=== PATIENT | female | born 1955 | race Caucasian/White ===

== ENCOUNTER 2024-01-15 14:08 | Inpatient (IN) | payer OTHER, MEDICAID ==
[~2024-01-15] VITALS: Ht 157.5 cm; Wt 63.5 kg
[~2024-01-15 14:08] MED LIST: BENZ1TAB84 PO; BUPR150T3 PO; DOCU-385 PO; FLUP5TAB31 PO
[2024-01-15 15:21] LABS: GLUCOMETER DEV NAME(LOC) POC.BV; POC SARS-COV2 AG, FIA NEGATIVE (NEGATIVE)
[2024-01-15] MEDS ORDERED: HALOPERIDOL 5 MG TABLET PO PRN (16:00)
[2024-01-15] MEDS ORDERED: LORazepam 2 MG TABLET PO PRN (16:00)
[2024-01-15 18:56] VITALS: BP 121/88; PULSE 86; RESP 13; TEMP 98.5; O2SAT 97
[2024-01-15] MEDS ORDERED: PNEUMOCOCCAL VACCINE POLYVALENT 0.5 ML SYRINGE [PPSV23] IM. ONE (19:00)
[2024-01-15 20:59] VITALS: BP 108/70; PULSE 76; RESP 18; TEMP 98.3; O2SAT 97
[2024-01-16] MEDS ORDERED: MAGNESIUM HYDROXIDE SUSPENSION 30 ML UDCUP PO PRN (05:45)
[2024-01-16] MEDS ORDERED: DOCUSATE SODIUM 100 MG CAPSULE PO PRN (05:45)
[2024-01-16] MEDS ORDERED: LOPERAMIDE HCL 2 MG CAPSULE PO PRN (05:45)
[2024-01-16] MEDS ORDERED: ALBUTEROL SULFATE HFA 90 MCG/PUFF 8 GM INHALER IH PRN (05:45)
[2024-01-16] MEDS ORDERED: BACITRACIN 28 GM OINTMENT TP PRN (05:45)
[2024-01-16] MEDS ORDERED: CloNIDine HCL 0.1 MG TABLET PO PRN (05:45)
[2024-01-16] MEDS ORDERED: MAG HYDROX/ALUMINUM HYD/SIMETH ES 30 ML SUSPENSION UDCUP PO PRN (05:45)
[2024-01-16] MEDS ORDERED: ONDANSETRON HCL 4 MG TABLET PO PRN (05:45)
[2024-01-16] MEDS ORDERED: IBUPROFEN 600 MG TABLET PO PRN (05:45)
[2024-01-16] MEDS ORDERED: BENZOCAINE/MENTHOL LOZENGE PO PRN (05:45)
[2024-01-16] MEDS ORDERED: OMEPRAZOLE 20 MG CAPSULE PO PRN (05:45)
[2024-01-16] MEDS ORDERED: PETROLATUM,WHITE 28 GM JELLY TP PRN (05:45)
[2024-01-16 08:03] LABS: BASOPHILS % (AUTO) 1.4 % (0.0-2.0); HEMATOCRIT 43.2 % (36-46); HEMOGLOBIN 14.4 g/dL (12.0-16.0); LYMPHOCYTES # (AUTO) 2.6 K/uL (1.0-4.8); LYMPHOCYTES % (AUTO) 39.1 % (22.0-44.0); MEAN CORPUSCULAR HEMOGLOBIN 30.5 pg (26.0-34.0); MEAN CORPUSCULAR HGB CONC 33.3 G/dL (31.0-37.0); MEAN CORPUSCULAR VOLUME 91 fL (80-100); MONOCYTES # (AUTO) 0.7 K/uL (0.1-1.0); MONOCYTES % (AUTO) 11.1 % (2.0-9.0); NEUTROPHILS % (AUTO) 45.4 % (40.0-70.0); PLATELET COUNT (AUTO) 374 K/uL (150-450); RED BLOOD CELL COUNT(AUTO) 4.72 MIL/uL (4.00-5.20); RED CELL DISTRIBUTION WIDTH 14.5 % (11.5-14.5); WHITE BLOOD COUNT (AUTO) 6.7 K/uL (4.5-11.0)
[2024-01-16 08:25] LABS: ALBUMIN 3.9 g/dL (3.4-5.0); BILIRUBIN,TOTAL 0.4 mg/dL (0.1-1.0); CALCIUM, TOTAL 9.6 mg/dL (8.8-10.5); CHOL/HDL RATIO 2.6 (3.9-5.7); CREATININE 1.33 mg/dL (0.60-1.30); FREE T4 (FREE THYROXINE) 0.89 ng/dL (0.76-1.46); POTASSIUM 3.7 mmol/L (3.5-5.1); THYROID STIMULATING HORMONE 4.25 uIU/mL (0.36-3.74); TOTAL PROTEIN, SERUM 7.2 g/dL (6.4-8.2)
[2024-01-16 08:56] VITALS: BP 117/76; PULSE 88; RESP 17; TEMP 97.8; O2SAT 100
[2024-01-16] MEDS: OMEPRAZOLE 20 MG CAPSULE PO SCH (09:24)
[2024-01-16 20:08] VITALS: BP 128/92; PULSE 91; RESP 16; TEMP 98.3; O2SAT 97
[2024-01-16] MEDS: FluPHENAZine HCL 10 MG TABLET PO SCH (20:44)
[2024-01-16] MEDS: BENZTROPINE MESYLATE 2 MG TABLET PO SCH (20:45)
[2024-01-17] MEDS: BuPROPion HCL XL 150 MG ER TABLET PO SCH (08:04)
[2024-01-17 08:05] VITALS: BP 133/87; PULSE 79; RESP 15; TEMP 98; O2SAT 98
[2024-01-17 08:24] LABS: APPEARANCE,URINE CLEAR (CLEAR); BILIRUBIN,URINE NEGATIVE (NEGATIVE); COLOR,URINE LIGHT YELLOW (YELLOW); GLUCOSE, URINE (UA) NEGATIVE (NEGATIVE); KETONES,URINE NEGATIVE (NEGATIVE); LEUKOCYTE ESTERASE ,URINE NEGATIVE (NEGATIVE); NITRATE,URINE NEGATIVE (NEGATIVE); OCCULT BLOOD,URINE NEGATIVE (NEGATIVE); PH,URINE 5.5 (5.0-8.0); PH,URINE DRUG SCREEN 5.5 (5.0-8.0); PROTEIN,URINE NEGATIVE (NEGATIVE); SPECIFIC GRAVITIY, URINE 1.011 (1.003-1.030); UROBILINOGEN,URINE <=1.0 mg/dL (<=1.0)
[2024-01-17 08:37] LABS: ALCOHOL, URINE DRUG SCREEN NEGATIVE (NEGATIVE); AMPHET/METH SCREEN,URINE NEGATIVE (NEGATIVE); BARBITURATE SCREEN, URINE NEGATIVE (NEGATIVE); BENZODIAZEPINES SCREEN,URINE NEGATIVE (NEGATIVE); CANNABINOID SCREEN,URINE NEGATIVE (NEGATIVE); COCAINE SCREEN,URINE NEGATIVE (NEGATIVE); METHADONE SCREEN, URINE NEGATIVE (NEGATIVE); OPIATE SCREEN,URINE NEGATIVE (NEGATIVE); PHENCYCLIDINE SCREEN,URINE NEGATIVE (NEGATIVE)
[2024-01-17 21:30] VITALS: BP 128/84; PULSE 75; RESP 17; TEMP 97.2; O2SAT 99
[2024-01-17] MEDS: ZOLPIDEM TARTRATE 10 MG TABLET PO PRN (21:32)
[2024-01-18 08:14] VITALS: BP 122/77; PULSE 81; RESP 17; TEMP 98; O2SAT 100
[2024-01-18 20:11] VITALS: BP 100/70; PULSE 95; RESP 18; TEMP 97.2; O2SAT 96
[2024-01-19 04:58] VITALS: BP 102/69; PULSE 91; RESP 18; TEMP 97.5; O2SAT 97
[2024-01-19] MEDS: ACETAMINOPHEN 325 MG TABLET PO PRN (05:00)
[2024-01-19 06:04] VITALS: RESP 18
[2024-01-19 08:08] VITALS: BP 106/74; PULSE 70; RESP 17; TEMP 97.6; O2SAT 97
[2024-01-19 20:51] VITALS: BP 129/86; PULSE 75; RESP 17; TEMP 97.6; O2SAT 97
[2024-01-20 08:41] VITALS: BP 101/66; PULSE 72; RESP 18; TEMP 97.3; O2SAT 97
[2024-01-20] MEDS ORDERED: FLUP10TA28 PO (10:47)
[2024-01-20] MEDS ORDERED: BENZ2TAB71 PO (10:48)
[2024-01-20] MEDS ORDERED: OMEP20 PO (10:49)
== END 2024-01-20 17:04 | disposition home or self-care (01) | DRG 885 ==
LOC: B2S 16:20
PROVIDERS: ADMIT Psychiatry & Neurology Psychiatry; ATTEND Psychiatry & Neurology Psychiatry
DX: F20.9 Schizophrenia, unspecified (principal); N18.30 Chronic kidney disease, stage 3 unspecified; R45.851 Suicidal ideations; J44.9 Chronic obstructive pulmonary disease, unspecified; E03.9 Hypothyroidism, unspecified; F32.A Depression, unspecified; F41.9 Anxiety disorder, unspecified; G47.00 Insomnia, unspecified; Z20.822 Contact with and (suspected) exposure to COVID-19; K59.00 Constipation, unspecified; M79.672 Pain in left foot; Z91.09 Other allergy status, other than to drugs and biological substances; Z72.0 Tobacco use
CPT/HCPCS: 80053; 80061; 80307; 81003; 84436; 84439; 84443; 85025; 86592

== ENCOUNTER 2025-05-03 11:45 | Emergency (ER) | payer OTHER ==
[~2025-05-03] VITALS: Ht 153 cm; Wt 52.3 kg
[~2025-05-03 11:45] MED LIST changes: -BENZ1TAB84 PO; +BENZ2TAB84 PO; +FLUP10TA28 PO; -FLUP5TAB31 PO; +OMEP-148 PO
[2025-05-03 11:52] VITALS: BP 119/81; PULSE 70; RESP 16; TEMP 97.5; O2SAT 100
[2025-05-03] MEDS ORDERED: FERR324T3 PO (11:58)
[2025-05-03] MEDS ORDERED: BREX0.5T PO (11:58)
[2025-05-03] MEDS ORDERED: DAPA10TA PO (11:58)
[2025-05-03] MEDS ORDERED: ATOR10TA69 PO (11:58)
[2025-05-03] MEDS ORDERED: CEPH500C3 PO (11:58)
[2025-05-03] MEDS ORDERED: QUET25TA36 PO (11:58)
[2025-05-03] MEDS ORDERED: BREX1TAB PO (11:58)
[2025-05-03 12:40] LABS: APPEARANCE,URINE CLEAR (CLEAR); GLUCOSE, URINE (UA) 300-500 mg/dL (NEGATIVE); LEUKOCYTE ESTERASE ,URINE NEGATIVE (NEGATIVE); NITRATE,URINE NEGATIVE (NEGATIVE); OCCULT BLOOD,URINE NEGATIVE (NEGATIVE); SPECIFIC GRAVITIY, URINE 1.003 (1.003-1.030)
== END 2025-05-03 13:11 | disposition home or self-care (01) ==
LOC: EMS 11:45
DX: R30.0 Dysuria (principal); R81 Glycosuria; J45.909 Unspecified asthma, uncomplicated; F32.A Depression, unspecified; I10 Essential (primary) hypertension; F20.9 Schizophrenia, unspecified; E78.00 Pure hypercholesterolemia, unspecified; E03.9 Hypothyroidism, unspecified; Z79.899 Other long term (current) drug therapy
CPT/HCPCS: 81001; 82962; 99283